=== PATIENT | male | born 1995 | race Caucasian/White ===

== ENCOUNTER 2020-08-24 04:50 | Emergency (ER) | payer OTHER ==
[~2020-08-24] VITALS: Ht 170.2 cm; Wt 59.0 kg
--- NOTE | 2020-08-24 05:17 | NUR ---
bibself c/ o depression +si plan to hurt himself cutting himself with a knife. pt denies hi. pt aox4 rr even and unlabored. no sob noted. no nvd at this time. pt gowned and personal belongings placed in safe/ locked area. pt surroundings cleared. pt informed plan of care, verbalized understanding, and agreed. sitter within line of sight. will continuie to closely monitor.
--- NOTE | 2020-08-24 05:20 | NUR ---
NILAMID SWABBED, SENT TO LAB.
--- NOTE | 2020-08-24 05:20 | NUR ---
urine collected. sent to lab
[2020-08-24 05:37] LABS: BILIRUBIN,URINE MODERATE (NEGATIVE); COLOR,URINE YELLOW (YELLOW); LEUKOCYTE ESTERASE ,URINE NEGATIVE (NEGATIVE); NITRITE, URINE NEGATIVE (NEGATIVE); PROTEIN,URINE NEGATIVE (NEGATIVE); UGLUCOSE NEGATIVE (NEGATIVE); UROBILINOGEN,URINE 0.2 EU/dL (0.2)
[2020-08-24 05:41] LABS: BASOPHILS # (AUTO) 0.1 /CMM (0.0-0.2); BASOPHILS % (AUTO) 0.6 % (0.0-2.0); EOSINOPHILS % (AUTO) 0.4 % (0.0-6.0); HEMATOCRIT 47 % (39-51); HEMOGLOBIN 15.8 g/dL (13.5-17.5); LYMPHOCYTES # (AUTO) 2.5 /CMM (0.8-4.8); LYMPHOCYTES % (AUTO) 23.4 % (20.0-44.0); MEAN CORPUSCULAR HGB CONC 34 g/dl (31.0-36.0); MEAN CORPUSCULAR VOLUME 90 fL (80-96); MONOCYTES # (AUTO) 0.7 /CMM (0.1-1.30); MONOCYTES % (AUTO) 6.5 % (2.0-12.0); NEUTROPHILS # (AUTO) 7.5 /CMM (1.8-8.9); NEUTROPHILS % (AUTO) 69.1 % (43.0-81.0); PLATELET COUNT (AUTO) 225 /CMM (150-450); RED BLOOD CELL COUNT(AUTO) 5.17 MIL/uL (4.5-6.0); WHITE BLOOD COUNT (AUTO) 10.9 K/uL (4.3-11.0)
[2020-08-24 05:43] LABS: BACTERIA,URINE Rare /HPF (None Seen); MUCUS,URINE Moderate /LPF (None Seen); RBC,URINE 0-2 /HPF (0-2); SQUAMOUS EPITHELIAL CELL,UR Rare /HPF (None Seen)
[2020-08-24 05:48] LABS: CALCIUM, SERUM 9.3 mg/dL (8.5-10.1); CARBON DIOXIDE 22 mmol/L (21-32); CHLORIDE 101 mmol/L (98-107); CREATININE 0.9 mg/dL (0.6-1.3); GLUCOSE 119 mg/dL (74-106); POTASSIUM 3.4 mmol/L (3.5-5.1); SODIUM SERUM 136 mmol/L (136-145); UREA NITROGEN, BLOOD 12 mg/dL (7-18)
[2020-08-24 05:55] LABS: ALANINE AMINOTRANSFERASE 17 U/L (12-78); ALBUMIN 4.2 g/dL (3.4-5.0); ALCOHOL, BLOOD < 3 mg/dL (0-0); ALKALINE PHOSPHATASE 81 U/L (46-116); ASPARTATE AMINOTRANSFERASE 9 U/L (15-37); BILIRUBIN,DIRECT 0.2 mg/dL (0.0-0.2); BILIRUBIN,TOTAL 0.6 mg/dL (0.2-1.0); TOTAL PROTEIN, SERUM 7.4 g/dL (6.4-8.2)
[2020-08-24 05:58] LABS: ACETAMINOPHEN 0 ug/ml (10-30)
--- NOTE | 2020-08-24 06:17 | NUR ---
LAB CALLED REGARDING NEGATIVE COVID RESULT.
--- NOTE | 2020-08-24 07:25 | NUR ---
CALLED SECURITY FOR WANDING.
--- NOTE | 2020-08-24 07:49 | NUR ---
REPORT GIVEN TO BARRETT PEARCE FOR CONTINUITY OF CARE.
--- NOTE | 2020-08-24 10:00 | NUR ---
PATIENT A/OX4, BREATHING EVEN AND UNLABORED, STS HE'S NO LONGER SUICIDAL. DR. HENRY MADE AWARE.
--- NOTE | 2020-08-24 10:21 | NUR ---
DR. HENRY RE-EVALUATED PATIENT AND GIVEN OUTPATIENT REHAB RESOURCES. PATIENT A/OX4, BREATHING EVEN AND UNLABORED, Patient discharged to home in stable condition. Written and verbal after care instructions given. Patient verbalizes understanding of instruction.
[2020-08-24 10:45] VITALS: BP 122/69
== END 2020-08-24 10:45 | disposition home or self-care (01) ==
LOC: ER 04:50
DX: R45.851 Suicidal ideations (principal); F12.10 Cannabis abuse, uncomplicated; Z20.828 Contact with and (suspected) exposure to other viral communicable diseases
CPT/HCPCS: 36415; 80048; 80076; 80299; 80307; 80320; 81001; 85025; 87086; 87426; 99285; C9803; G0480